=== PATIENT | female | born 1960 ===

== ENCOUNTER 2021-12-26 10:08 | Outpatient (CLI) | payer MEDICAID ==
[2021-12-26 11:41] LABS: H. PYLORIS ANTIGEN STL NEGATIVE (Negative)
== END 2021-12-26 10:09 | disposition home or self-care (01) ==
LOC: LAB 10:08
PROVIDERS: ATTEND Internal Medicine Gastroenterology
DX: K29.70 Gastritis, unspecified, without bleeding (principal); B96.81 Helicobacter pylori [H. pylori] as the cause of diseases classified elsewhere
CPT/HCPCS: 87338

== ENCOUNTER 2022-12-28 13:22 | Emergency (ER) | payer MEDICAID ==
[2022-12-28] MEDS ORDERED: BENZONATATE 100 MG CAPSULE PO STA (13:54)
[2022-12-28] MEDS ORDERED: ALBUTEROL NEB 2.5 MG/3 ML INH STA (13:54)
--- NOTE | 2022-12-28 13:58 | ED Physician Documentation ---
History of Present Illness - Stated complaint Stated Complaint: COUGH - Chief complaint Chief Complaint: Resp - History obtained from History obtained from: Patient - History of Present Illness Timing: Today Pain level max: 3 Pain level now: 3 - Additonal information Additional information: 62-year-old female presents to the emergency department complaint of cough for the past 2 weeks. Nothing makes it better or worse. She states that she has chest pain with coughing. She has not taken anything for the pain, but cough for the nasal congestion. She does not take any medications at home. Denies any allergies. No smoking. Review of Systems Constitutional: denies: Fever, Chills Nose: reports: Rhinorrhea / runny nose, Congestion GI: denies: Nausea, Vomiting, Diarrhea Skin: denies: Rash Musculoskeletal: denies: Neck pain, Back pain Neurologic: denies: Headache PD PAST MEDICAL HISTORY - Past Medical History Past Medical History: No - Past Surgical History Past Surgical History: No - Present Medications Home Medications: Ambulatory Orders Medication Instructions Recorded Confirmed Albuterol Sulf [Ventolin Hfa 1 - 2 puffs INH Q4HR PRN #1 each 12/28/22 Inhaler] Benzonatate [Tessalon] 200 mg PO TID PRN #30 cap 12/28/22 Cetirizine HCl/Pseudoephedrine 1 each PO BID PRN #30 tab 12/28/22 [Zyrtec-D Tablet] - Allergies Allergies/Adverse Reactions: Allergies Allergy/AdvReac Type Severity Reaction Status Date / Time No Known Drug Allergies Allergy Verified 12/28/22 13:37 - Living Situation Living Situation: reports: With family Living Arrangement: reports: At home - Family History Family history: reports: Non contributory PD ED PE NORMAL - Vitals Vital signs reviewed: Yes - General General: Alert and oriented X 3, No acute distress - HEENT HEENT: Ears normal, Moist mucous membranes, Pharynx benign - Neck Neck: Supple, no meningeal sign - Cardiac Cardiac: RRR, Strong equal pulses - Respiratory Respiratory: No respiratory distress, Clear bilaterally - Abdomen Abdomen: Soft, Non tender, Non distended - Back Back: No spinal TTP - Derm Derm: Warm and dry - Extremities Extremities: No edema - Neuro Neuro: Alert and oriented X 3 - Psych Psych: Normal mood, Normal affect Results - Vitals Vitals: Vital Signs - 24 hr 0212/28/22 12/28/22 13:34 14:10 14:55 Temperature 37.4 C Heart Rate 109 H 100 112 H Respiratory 20 20 18 Rate Blood Pressure 144/77 H 127/81 H O2 Saturation 98 97 Oxygen O2 Source Room air - Rads (name of study) Chest x-ray Radiology: Final report received, See rad report (No acute abnormality) PD Medical Decision Making - ED course Complexity details: reviewed results, re-evaluated patient, considered differential, d/w patient ED course: 62-year-old female, well-appearing, nontoxic. Afebrile. No hypoxia. No respiratory distress. Negative chest x-ray. Feels better with a breathing treatment. Will place on cough medication, albuterol and Zyrtec-D for home. We will have her follow-up with her doctor for further care. Patient counseled regarding signs and symptoms for which I believe and urgent re-evaluation would be necessary. Patient with good understanding of and agreement to plan and is comfortable going home at this time This document was made in part using voice recognition software. While efforts are made to proofread this document, sound alike and grammatical errors may occur. Departure - Departure Disposition: 01 Home, Self Care Clinical Impression: Viral URI Condition: Good Instructions: ED Viral Syndrome Follow-Up: Maria Del Carmen Fuentes MD [Primary Care Provider] - Prescriptions: Albuterol Sulf [Ventolin Hfa Inhaler] 1 - 2 puffs INH Q4HR PRN #1 each PRN Reason: Shortness Of Air/Wheezing Benzonatate [Tessalon] 200 mg PO TID PRN #30 cap PRN Reason: Cough Cetirizine HCl/Pseudoephedrine [Zyrtec-D Tablet] 1 each PO BID PRN #30 tab PRN Reason: nasal congestion Comments: Your prescription was sent to [facility] in [place]. Please follow-up with your doctor for further care. Please return if you worsen. This appears to be a viral illness and will resolve on its own. There is no evidence of pneumonia on your chest x-ray today. Discharge Date/Time: 12/28/22 14:55
--- NOTE | 2022-12-28 14:20 | XRAY Report ---
PROCEDURE: Chest 2 View X-Ray INDICATIONS: cough x 2 weeks TECHNIQUE: 2 views of the chest were acquired. COMPARISON: None. FINDINGS: Surgical changes and devices: None. Lungs and pleura: No pleural effusions or pneumothorax. Lungs are clear. Mediastinum: Mediastinal contours are normal. Heart size is normal. Bones and chest wall: No suspicious bony abnormalities. Soft tissues appear unremarkable. IMPRESSION: No acute cardiopulmonary pathology. Reviewed by: Oscar Jensen MD on 12/28/2022 2:19 PM PST Approved by: Oscar Jensen MD on 12/28/2022 2:19 PM [facility] Station ID: [id number]
[2022-12-28 14:56] VITALS: BP 127/81
== END 2022-12-28 14:55 | disposition home or self-care (01) ==
LOC: ED 13:22
DX: J06.9 Acute upper respiratory infection, unspecified (principal)
CPT/HCPCS: 71046; 94640; 99283; A9270